=== PATIENT | male | born 1935 | race Caucasian/White ===

== ENCOUNTER 2017-03-07 08:10 | Day surgery (SDC) | payer MEDICARE, BC ==
[~2017-03-07 08:10] MED LIST: Sodium Chloride 0.9% 10 ML Syringe FLUSH PRN
[2017-03-07 10:39] VITALS: BP 159/86
--- NOTE | 2017-03-07 14:25 | OR ---
DATE OF PROCEDURE: 03/07/2017 POSTOPERATIVE CARE: Postoperative care will be provided mainly at the [address] [place] [address] [facility] in conjunction with [facility]. PREOPERATIVE DIAGNOSIS: Cataract, left eye. PREOPERATIVE DIAGNOSIS: Cataract, left eye. PROCEDURE: Phacoemulsification with intraocular lens placement, left eye. ANESTHESIA: Topical and intracameral. ESTIMATED BLOOD LOSS: Minimal. COMPLICATIONS: None. PATHOLOGY SPECIMENS: None. SURGICAL FINDINGS: None. INDICATION FOR PROCEDURE: The patient is a 81-year-old male with history of a visually significant cataract in the left eye, which interfered with activities of daily living. This consisted of a nuclear sclerosis cataract. Following careful discussion of the risks, benefits and alternatives to cataract extraction with intraocular lens placement including blindness and , the patient elected to proceed, and informed, written consent was obtained prior to the procedure. DESCRIPTION OF THE PROCEDURE: The patient was previously identified, and a zuleyka placed above the left eye. All sources, including the patient, indicated that the left eye was the correct eye. The patient was subsequently taken to the operating room where standard monitors were applied. The patient was then prepped and draped in the usual sterile fashion for ophthalmic surgery. Attention was first directed at the 12 o'clock position where a paracentesis port was fashioned. Shugar solution followed by Viscoat was instilled into the eye. Attention was then directed to the 8:30 position where a triplanar incision was made in a near-clear manner using a keratome. A continuous capsulorrhexis was then made using a combination of the cystotome and Utrata forceps. Hydrodissection was achieved using a balanced salt solution, and the lens rotated nicely. Phacoemulsification was then done using a modified [id number] technique without complication. Phaco time was 11.13 CDE. The remaining cortex was removed using the irrigation/aspiration handpiece. Provisc was then instilled into the eye. A Technis lens, model [id number], at 21.0 diopters was then placed in the capsular bag using an [place] injector. The remaining viscoelastic was removed using the irrigation/aspiration forceps. All wounds were then checked and found to be watertight. The lid speculum and drapes were removed. Maxitrol ointment was placed in the patient's left eye, and the eye was shielded. The patient tolerated the procedure well. The patient was instructed to follow up tomorrow. All needle and sponge counts were correct at the end of the procedure. Deja Roach MD /[id number]
== END 2017-03-07 10:42 | disposition home or self-care (01) ==
LOC: JP.SDS 08:10
PROVIDERS: ATTEND Ophthalmology
DX: H26.9 Unspecified cataract (principal); I10 Essential (primary) hypertension; E78.00 Pure hypercholesterolemia, unspecified; E11.9 Type 2 diabetes mellitus without complications; Z88.2 Allergy status to sulfonamides
CPT/HCPCS: 66984; C1780

== ENCOUNTER 2018-06-13 13:36 | Observation (INO) | payer MEDICARE, OTHER ==
[2018-06-13] MEDS ORDERED: Aspirin 81 MG Tab.Chew PO ONE (13:56)
--- NOTE | 2018-06-13 13:56 | EDM.PDOC ---
ED HPI GENERAL MEDICAL PROBLEM - General Chief Complaint: Chest Pain Stated Complaint: HEART ATTACK?? Time Seen by Provider: 06/13/18 13:52 Source of Information: Reports: Patient History Limitations: Reports: No Limitations - History of Present Illness INITIAL COMMENTS - FREE TEXT/NARRATIVE: pt arrived having rt sided chest pain He is breathing rapidly . He seemes very anxious. He hjad a coronary bypass in 2001. Onset: Today, Sudden Duration: Hour(s):, Other (pt is talking about being dizzy but he is feeling sob and appears to be hyperventilating) Location: Reports: Chest, Abdomen, Other ( dizzy) Associated Symptoms: Reports: Chest Pain, Other (nausea and he was feeling sob. ) Head Pain Score (Numeric/FACES): 0 - Related Data Allergies Allergy/AdvReac Type Severity Reaction Status Date / Time Sulfa (Sulfonamide Allergy Hives Verified 06/13/18 13:53 Antibiotics) Home Meds: Home Meds Aspirin 81 mg PO DAILY 03/04/17 [History] Ibuprofen [Advil] 2 tab PO Q8H PRN 03/04/17 [History] Loratadine [Claritin] 10 mg PO DAILY 03/04/17 [History] glipiZIDE [Glucotrol] 5 mg PO BID 03/04/17 [History] metFORMIN HCl [Glucophage] 1,000 mg PO BID 03/04/17 [History] Metoprolol Succinate [Toprol Xl] 50 mg PO DAILY 06/13/18 [History] Ranitidine HCl [Zantac] 150 mg PO DAILY 06/13/18 [History] Simvastatin [Zocor] 40 mg PO BEDTIME 06/13/18 [History] hydroCHLOROthiazide [Hydrochlorothiazide] 1 tab PO DAILY 06/13/18 [History] Past Medical History HEENT History: Reports: Cataract Cardiovascular History: Reports: Bypass, High Cholesterol, Hypertension Gastrointestinal History: Reports: None Genitourinary History: Reports: Prostate Disorder Endocrine/Metabolic History: Reports: Diabetes, Type II, Obesity/BMI 30+ - Past Surgical History HEENT Surgical History: Reports: Cataract Surgery, Naso-Sinus Surgery Cardiovascular Surgical History: Reports: Coronary Artery Bypass GI Surgical History: Reports: Colonoscopy Male Surgical History: Reports: Prostate Biopsy, TURP-Transurethral Resection of Prostate Social & Family History - Caffeine Use Caffeine Use: Reports: Coffee, Tea ED ROS GENERAL - Review of Systems Review Of Systems: See Below Constitutional: Reports: Diaphoresis HEENT: Reports: No Symptoms Respiratory: Reports: Shortness of Breath Cardiovascular: Reports: Chest Pain Endocrine: Reports: No Symptoms GI/Abdominal: Reports: Nausea : Reports: No Symptoms Musculoskeletal: Reports: No Symptoms ED EXAM, GENERAL - Physical Exam Exam: See Below Free Text/Narrative:: 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 He also became dizzy and was very sweaty. He has been having the dizziness previously. He states the chest pain was on the left side and was quite sharp in nature. Exam Limited By: No Limitations General Appearance: Alert, Anxious, Moderate Distress Ears: Normal TMs Nose: Normal Inspection Throat/Mouth: Normal Inspection Head: Atraumatic Neck: Normal Inspection Respiratory/Chest: No Respiratory Distress Cardiovascular: Regular Rate, Rhythm GI/Abdominal: Soft, Non-Tender, Other ( He has mild tenderness in the rt upper abdoman. ) (Male) Exam: Deferred Rectal (Males) Exam: Deferred Back Exam: Normal Inspection Extremities: Normal Inspection Neurological: Alert, Oriented, Normal Cognition Psychiatric: Normal Affect Course - Vital Signs Last Recorded V/S: Last Vital Signs Temp 36.5 C 06/13/18 14:39 Pulse 52 L 06/13/18 16:07 Resp 13 06/13/18 16:07 BP 106/60 06/13/18 16:07 Pulse Ox 96 06/13/18 16:07 - Orders/Labs/Meds Orders: Active Orders 24 hr Category Date Time Status EKG Documentation Completion [RC] ASDIRECTED Care 06/13/18 13:45 Active VL Duplex Carotid Comp [US] Stat Exams 06/13/18 15:57 Taken UA W/MICROSCOPIC [URIN] Urgent Lab 06/13/18 15:03 Ordered Sodium Chloride 0.9% [Normal Saline] 1,000 ml Med 06/13/18 15:45 Active IV ASDIRECTED EKG 12 Lead [EK] Routine Ther 06/13/18 13:45 Ordered Medication Orders Sodium Chloride (Normal Saline) 1,000 mls @ 200 mls/hr IV ASDIRECTED YI Last Admin: 06/13/18 15:54 Dose: 200 mls/hr Labs: Laboratory Tests 08/31/18 08/31/18 08/31/18 Range/Units 13:45 13:45 13:45 WBC 7.0 (4.5-11.0) K/uL RBC 4.85 (4.30-5.90) M/uL Hgb 14.9 (12.0-15.0) g/dL Hct 41.6 (40.0-54.0) % MCV 86 (80-98) fL MCH 31 (27-31) pg MCHC 36 (32-36) % Plt Count 202 (150-400) K/uL Neut % (Auto) 59 (36-66) % Lymph % (Auto) 30 (24-44) % [place] % (Auto) 10 H (2-6) % Eos % (Auto) 0 L (2-4) % Baso % (Auto) 0 (0-1) % Sodium 135 L (140-148) mmol/L Potassium 3.7 (3.6-5.2) mmol/L Chloride 99 L (100-108) mmol/L Carbon Dioxide 24 (21-32) mmol/L Anion Gap 15.7 H (5.0-14.0) mmol/L BUN 25 H (7-18) mg/dL Creatinine 2.2 H (0.8-1.3) mg/dL Est Cr Clr Drug Dosing 27.19 mL/min Estimated GFR (MDRD) 29 L (>60) Glucose 116 H (74-106) mg/dL Calcium 9.2 (8.5-10.1) mg/dL Total Bilirubin 0.7 (0.2-1.0) mg/dL AST 21 (15-37) U/L ALT 27 (12-78) U/L Alkaline Phosphatase 70 (46-116) U/L Troponin I < 0.017 (0.000-0.056) ng/mL Total Protein 7.4 (6.4-8.2) g/dL Albumin 4.1 (3.4-5.0) g/dL Globulin 3.3 (2.3-3.5) g/dL Albumin/Globulin Ratio 1.2 (1.2-2.2) Urine Color Urine Appearance Urine pH (4.5-8.0) Ur Specific [place] (1.008-1.030) Urine Protein (NEGATIVE) mg/dL Urine Glucose (UA) (NEGATIVE) mg/dL Urine Ketones (NEGATIVE) mg/dL Urine Occult Blood (NEGATIVE) Urine Nitrite (NEGAITVE) Urine Bilirubin (NEGATIVE) Urine Urobilinogen (NORMAL) mg/dL Ur Leukocyte Esterase (NEGATIVE) Urine RBC (0-5) Urine WBC (0-5) Ur Epithelial Cells Amorphous Sediment Urine Bacteria Urine Mucus Urine Other 06/13/18 06/13/18 Range/Units 15:03 16:20 WBC (4.5-11.0) K/uL RBC (4.30-5.90) M/uL Hgb (12.0-15.0) g/dL Hct (40.0-54.0) % MCV (80-98) fL MCH (27-31) pg MCHC (32-36) % Plt Count (150-400) K/uL Neut % (Auto) (36-66) % Lymph % (Auto) (24-44) % [place] % (Auto) (2-6) % Eos % (Auto) (2-4) % Baso % (Auto) (0-1) % Sodium (140-148) mmol/L Potassium (3.6-5.2) mmol/L Chloride (100-108) mmol/L Carbon Dioxide (21-32) mmol/L Anion Gap (5.0-14.0) mmol/L BUN (7-18) mg/dL Creatinine (0.8-1.3) mg/dL Est Cr Clr Drug Dosing mL/min Estimated GFR (MDRD) (>60) Glucose (74-106) mg/dL Calcium (8.5-10.1) mg/dL Total Bilirubin (0.2-1.0) mg/dL AST (15-37) U/L ALT (12-78) U/L Alkaline Phosphatase (46-116) U/L Troponin I < 0.017 (0.000-0.056) ng/mL Total Protein (6.4-8.2) g/dL Albumin (3.4-5.0) g/dL Globulin (2.3-3.5) g/dL Albumin/Globulin Ratio (1.2-2.2) Urine Color Yellow Urine Appearance Slightly cloudy Urine pH 5.0 (4.5-8.0) Ur Specific [place] 1.020 (1.008-1.030) Urine Protein Negative (NEGATIVE) mg/dL Urine Glucose (UA) Normal (NEGATIVE) mg/dL Urine Ketones Negative (NEGATIVE) mg/dL Urine Occult Blood Negative (NEGATIVE) Urine Nitrite Negative (NEGAITVE) Urine Bilirubin Small (NEGATIVE) Urine Urobilinogen 1 (NORMAL) mg/dL Ur Leukocyte Esterase Negative (NEGATIVE) Urine RBC Not seen (0-5) Urine WBC 0-5 (0-5) Ur Epithelial Cells Not seen Amorphous Sediment Moderate Urine Bacteria Few Urine Mucus Few Urine Other See note Meds: Medications Generic Name Dose Route Start Last Admin Trade Name Freq PRN Reason Stop Dose Admin Sodium Chloride 1,000 mls @ 200 mls/hr 06/13/18 15:45 06/13/18 15:54 Normal Saline IV 200 mls/hr ASDIRECTED YI Administration Discontinued Medications Generic Name Dose Route Start Last Admin Trade Name Freq PRN Reason Stop Dose Admin Aspirin 243 mg 06/13/18 13:56 06/13/18 14:14 Aspirin PO 06/13/18 13:57 243 mg ONETIME ONE Administration Lorazepam 0.5 mg 06/13/18 14:16 06/13/18 14:22 Ativan PO 06/13/18 14:17 0.5 mg ONETIME ONE Administration Morphine Sulfate 2 mg 06/13/18 15:53 06/13/18 15:57 Morphine IVPUSH 06/13/18 15:54 2 mg ONETIME ONE Administration Nitroglycerin 0.4 mg 06/13/18 15:37 06/13/18 15:51 Nitrostat SL 06/13/18 15:38 0.4 mg ONETIME ONE Administration Nitroglycerin 0.4 mg 06/13/18 15:51 06/13/18 15:55 Nitrostat SL 06/13/18 15:52 0.4 mg ONETIME ONE Administration - Re-Assessments/Exams Free Text/Narrative Re-Assessment/Exam: 06/13/18 17:12 pt had normal trop x 2/ His ekg shows a left bundle which is not new. He talked about alot of dizziness and for that reason He had a carotid US. The us looked good with out significsnt narrowing. He has a creatnine greater than 2. He has a normal chest xray. Departure - Departure Time of Disposition: 17:15 Disposition: Admitted As Inpatient 68 Condition: Fair Clinical Impression: Atypical chest pain, Dizziness, Left bundle branch block Referrals: PCP,None [Primary Care Provider] - Forms: ED Department Discharge Care Plan Goals: admit to Dr kraus. - My Orders Last 24 Hours: My Active Orders 06/13/18 13:45 EKG Documentation Completion [RC] ASDIRECTED EKG 12 Lead [EK] Routine 06/13/18 15:03 UA W/MICROSCOPIC [URIN] Urgent 06/13/18 15:45 Sodium Chloride 0.9% [Normal Saline] 1,000 ml IV ASDIRECTED 06/13/18 15:57 VL Duplex Carotid Comp [US] Stat - Assessment/Plan Last 24 Hours: My Active Orders 06/13/18 13:45 EKG Documentation Completion [RC] ASDIRECTED EKG 12 Lead [EK] Routine 06/13/18 15:03 UA W/MICROSCOPIC [URIN] Urgent 06/13/18 15:45 Sodium Chloride 0.9% [Normal Saline] 1,000 ml IV ASDIRECTED 06/13/18 15:57 VL Duplex Carotid Comp [US] Stat
[2018-06-13] MEDS ORDERED: LORazepam 0.5 MG Tab PO ONE (14:16)
--- NOTE | 2018-06-13 14:53 | CR ---
CHEST: Portable CLINICAL HISTORY:Chest pain COMPARISON:None FINDINGS: Patient has had previous sternotomy. Heart size and pulmonary vascularity are normal. Ther e are atherosclerotic changes in the aorta. Lung schneider are clear. IMPRESSION: Previous sternotomy No acute cardiopulmonary process
[2018-06-13] MEDS: Nitroglycerin 0.4 MG Tab.SL SL ONE ×2 (15:42→15:51)
[2018-06-13] MEDS ORDERED: Sodium Chloride 0.9% 1,000 ML IV SCH ×2 (15:45→18:51)
[2018-06-13] MEDS ORDERED: Nitroglycerin 0.4 MG Tab.SL SL ONE (15:51)
[2018-06-13] MEDS ORDERED: Morphine 2 MG/ML Syringe IVPUSH ONE (15:53)
--- NOTE | 2018-06-13 18:19 | PCM.HP ---
H&P History of Present Illness - General Date of Service: 06/13/18 Admit Problem/Dx: Admission Diagnosis/Problem Admission Diagnosis/Problem Chest pain Source of Information: Patient, Family, Provider History Limitations: Reports: No Limitations - History of Present Illness Initial Comments - Free Text/Narative: Siddharth presents to the emergency room today with chest pain. 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 The pain waxed and waned for approximately 1 hour and did finally resolve after he received 2 doses of nitroglycerin and a dose of morphine in the emergency room. The pain radiated up into his head and was associated with shortness of breath as well as dizziness and numbness in his feet. He did not take anything prior to arrival to make the pain better. He reports having intermittent but usually very short-lived pains in the chest. He has an excellent functional status and does not have dyspnea with exertion. He has never had pain this severe. No complaints of nausea, abdominal pain or diarrhea. He did not have breakfast and has not been drinking much fluid other than coffee and soda. 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 He does have some intermittent neuropathic sounding pain in his feet and that was more intense today. He does have intermittent episodes of dizziness that have been going on for some time. These are a lightheaded feeling and he does not describe any spinning or vertigo symptoms. Workup in the emergency room for the most part has been unremarkable. His creatinine is slightly elevated from baseline. He is noted to be bradycardic with heart rate in the 40s. He is currently pain-free. EKG did not show acute ischemic changes. He will be admitted for observation. Head Pain Score (Numeric/FACES): 0 - Related Data Allergies/Adverse Reactions: Allergies Allergy/AdvReac Type Severity Reaction Status Date / Time Sulfa (Sulfonamide Allergy Hives Verified 06/13/18 13:53 Antibiotics) Home Medications: Home Meds Aspirin 81 mg PO DAILY 03/04/17 [History] Ibuprofen [Advil] 2 tab PO Q8H PRN 03/04/17 [History] Loratadine [Claritin] 10 mg PO DAILY 03/04/17 [History] glipiZIDE [Glucotrol] 5 mg PO BID 03/04/17 [History] metFORMIN HCl [Glucophage] 1,000 mg PO BID 03/04/17 [History] Metoprolol Succinate [Toprol Xl] 50 mg PO DAILY 06/13/18 [History] Ranitidine HCl [Zantac] 150 mg PO DAILY 06/13/18 [History] Simvastatin [Zocor] 40 mg PO BEDTIME 06/13/18 [History] hydroCHLOROthiazide [Hydrochlorothiazide] 25 mg PO DAILY 06/13/18 [History] Past Medical History HEENT History: Reports: Cataract Cardiovascular History: Reports: Bypass, High Cholesterol, Hypertension Gastrointestinal History: Reports: None Other Gastrointestinal History: reflux Genitourinary History: Reports: Prostate Disorder Endocrine/Metabolic History: Reports: Diabetes, Type II, Obesity/BMI 30+ - Infectious Disease History Infectious Disease History: Reports: Chicken Pox - Past Surgical History HEENT Surgical History: Reports: Cataract Surgery, Naso-Sinus Surgery Cardiovascular Surgical History: Reports: Coronary Artery Bypass GI Surgical History: Reports: Colonoscopy Male Surgical History: Reports: Prostate Biopsy, TURP-Transurethral Resection of Prostate Social & Family History - Family History Cardiac: Reports: CAD (Father and brother) - Tobacco Use Smoking Status *Q: Former Smoker Years of Tobacco use: 20 Packs/Tins Daily: 0.5 Used Tobacco, but Quit: Yes Month/Year Tobacco Last Used: 1998 Second Hand Smoke Exposure: No - Caffeine Use Caffeine Use: Reports: Coffee, Tea - Alcohol Use Days Per Week of Alcohol Use: 0 - Recreational Drug Use Recreational Drug Use: No H&P Review of Systems - Review of Systems: Review Of Systems: See Below Free Text/Narrative: A complete 12 point review of systems was obtained. Pertinent positives and negatives are noted in the history of present illness. All other systems were reviewed and were negative except as noted. Exam - Exam Exam: See Below - Vital Signs Vital Signs: Last Vital Signs Temp 36.5 C 06/13/18 14:39 Pulse 52 L 06/13/18 16:07 Resp 13 06/13/18 16:07 BP 106/60 06/13/18 16:07 Pulse Ox 96 06/13/18 16:07 Weight: 95.254 kg - Exam Quality Assessment: No: Supplemental Oxygen General: Alert, Oriented, Cooperative. No: Mild Distress HEENT: Conjunctiva Clear, Mucosa Moist & [place]. No: Scleral Icterus Neck: Supple, Trachea Midline. No: Lymphadenopathy, Thyromegaly Lungs: Clear to Auscultation, Normal Respiratory Effort. No: Wheezing Cardiovascular: Regular Rhythm, Bradycardia. No: Systolic Murmur GI/Abdominal Exam: Normal Bowel Sounds, Soft, No Distention, No Mass, Tender ( Very mild generalized discomfort) Back Exam: Normal Inspection, Full Range of Motion Extremities: No Pedal Edema. No: Increased Warmth Skin: Warm, Dry Neuro Extensive - Mental Status: Alert, Oriented x3, Nl Response to Commands Neuro Extensive - Motor, Sensory, Reflexes: CN II-XII Intact. No: Dysarthria, Abnormal Motor, Tremor Psychiatric: Alert, Normal Affect - Patient Data Lab Results Last 24 hrs: Laboratory Results - last 24 hr 06/13/18 06/13/18 06/13/18 Range/Units 13:45 13:45 13:45 WBC 7.0 (4.5-11.0) K/uL RBC 4.85 (4.30-5.90) M/uL Hgb 14.9 (12.0-15.0) g/dL Hct 41.6 (40.0-54.0) % MCV 86 (80-98) fL MCH 31 (27-31) pg MCHC 36 (32-36) % Plt Count 202 (150-400) K/uL Neut % (Auto) 59 (36-66) % Lymph % (Auto) 30 (24-44) % [place] % (Auto) 10 H (2-6) % Eos % (Auto) 0 L (2-4) % Baso % (Auto) 0 (0-1) % Sodium 135 L (140-148) mmol/L Potassium 3.7 (3.6-5.2) mmol/L Chloride 99 L (100-108) mmol/L Carbon Dioxide 24 (21-32) mmol/L Anion Gap 15.7 H (5.0-14.0) mmol/L BUN 25 H (7-18) mg/dL Creatinine 2.2 H (0.8-1.3) mg/dL Est Cr Clr Drug Dosing 27.19 mL/min Estimated GFR (MDRD) 29 L (>60) Glucose 116 H (74-106) mg/dL Calcium 9.2 (8.5-10.1) mg/dL Total Bilirubin 0.7 (0.2-1.0) mg/dL AST 21 (15-37) U/L ALT 27 (12-78) U/L Alkaline Phosphatase 70 (46-116) U/L Troponin I < 0.017 (0.000-0.056) ng/mL Total Protein 7.4 (6.4-8.2) g/dL Albumin 4.1 (3.4-5.0) g/dL Globulin 3.3 (2.3-3.5) g/dL Albumin/Globulin Ratio 1.2 (1.2-2.2) Urine Color Urine Appearance Urine pH (4.5-8.0) Ur Specific [place] (1.008-1.030) Urine Protein (NEGATIVE) mg/dL Urine Glucose (UA) (NEGATIVE) mg/dL Urine Ketones (NEGATIVE) mg/dL Urine Occult Blood (NEGATIVE) Urine Nitrite (NEGAITVE) Urine Bilirubin (NEGATIVE) Urine Urobilinogen (NORMAL) mg/dL Ur Leukocyte Esterase (NEGATIVE) Urine RBC (0-5) Urine WBC (0-5) Ur Epithelial Cells Amorphous Sediment Urine Bacteria Urine Mucus Urine Other 06/13/18 06/13/18 Range/Units 15:03 16:20 WBC (4.5-11.0) K/uL RBC (4.30-5.90) M/uL Hgb (12.0-15.0) g/dL Hct (40.0-54.0) % MCV (80-98) fL MCH (27-31) pg MCHC (32-36) % Plt Count (150-400) K/uL Neut % (Auto) (36-66) % Lymph % (Auto) (24-44) % [place] % (Auto) (2-6) % Eos % (Auto) (2-4) % Baso % (Auto) (0-1) % Sodium (140-148) mmol/L Potassium (3.6-5.2) mmol/L Chloride (100-108) mmol/L Carbon Dioxide (21-32) mmol/L Anion Gap (5.0-14.0) mmol/L BUN (7-18) mg/dL Creatinine (0.8-1.3) mg/dL Est Cr Clr Drug Dosing mL/min Estimated GFR (MDRD) (>60) Glucose (74-106) mg/dL Calcium (8.5-10.1) mg/dL Total Bilirubin (0.2-1.0) mg/dL AST (15-37) U/L ALT (12-78) U/L Alkaline Phosphatase (46-116) U/L Troponin I < 0.017 (0.000-0.056) ng/mL Total Protein (6.4-8.2) g/dL Albumin (3.4-5.0) g/dL Globulin (2.3-3.5) g/dL Albumin/Globulin Ratio (1.2-2.2) Urine Color Yellow Urine Appearance Slightly cloudy Urine pH 5.0 (4.5-8.0) Ur Specific [place] 1.020 (1.008-1.030) Urine Protein Negative (NEGATIVE) mg/dL Urine Glucose (UA) Normal (NEGATIVE) mg/dL Urine Ketones Negative (NEGATIVE) mg/dL Urine Occult Blood Negative (NEGATIVE) Urine Nitrite Negative (NEGAITVE) Urine Bilirubin Small (NEGATIVE) Urine Urobilinogen 1 (NORMAL) mg/dL Ur Leukocyte Esterase Negative (NEGATIVE) Urine RBC Not seen (0-5) Urine WBC 0-5 (0-5) Ur Epithelial Cells Not seen Amorphous Sediment Moderate Urine Bacteria Few Urine Mucus Few Urine Other See note Result Diagrams: 06/13/18 13:45 06/13/18 13:45 Imaging Impressions Last 24 hrs: Chest x-ray - images personally reviewed - lungs are clear with no mass, infiltrate or effusion. Heart size is normal. He has had a previous sternotomy. EKG INTERPRETATION EKG Date: 06/13/18 Rhythm: NSR Rate (Beats/Min): 52 [place]: LAD-Left [place] Deviation P-Wave: Present QRS: LBBB ST-T: Normal QT: Normal Comparison: No Change EKG Interpretation Comments: Several PVCs are noted This image was personally reviewed and compared to a previous EKG with no significant changes. *Q Meaningful Use (ADM) - VTE Risk Assess *Q Each Risk Factor Represents 1 Point: Obesity ( BMI > 25 kg/m2) Total Score 1 Point Risk Factors: 1 Each Risk Factor Represents 2 Points: None Total Score 2 Point Risk Factors: 0 Each Risk Factor Represents 3 Points: Age 75 Years or Greater Total Score 3 Point Risk Factors: 3 Each Risk Factor Represents 5 Points: None Total Score 5 Point Risk Factors: 0 Venous Thromboembolism Risk Factor Score *Q: 4 - Problem List (1) Atypical chest pain SNOMED Code(s): 707023041 ICD Code: R07.89 - OTHER CHEST PAIN Status: Acute Current Visit: Yes (2) Dizziness SNOMED Code(s): 497150303, 532360760 ICD Code: R42 - DIZZINESS AND GIDDINESS Status: Acute Current Visit: Yes (3) Coronary artery disease SNOMED Code(s): 48422292 ICD Code: I25.10 - ATHSCL HEART DISEASE OF [place] CORONARY ARTERY W/O ANG PCTRS Status: Chronic Current Visit: Yes Qualifiers: Coronary Disease-Associated Artery/Lesion type: [place] artery [place] vs. transplanted heart: [place] heart Associated angina: without angina Qualified Code(s): I25.10 - Atherosclerotic heart disease of [place] coronary artery without angina pectoris (4) Stage III chronic kidney disease SNOMED Code(s): 817452898 ICD Code: N18.3 - CHRONIC KIDNEY DISEASE, STAGE 3 (MODERATE) Status: Chronic Current Visit: Yes (5) Type 2 diabetes mellitus with neurological manifestation SNOMED Code(s): 74078703, 326168124 ICD Code: E11.49 - TYPE 2 DIABETES W OTH DIABETIC NEUROLOGICAL COMPLICATION Status: Chronic Current Visit: Yes Problem List Initiated/Reviewed/Updated: Yes Orders Last 24hrs: Active Orders 24 hr Category Date Time Status Patient Status Manage Transfer [TRANSFER] Routine ADT 06/13/18 18:13 Ordered EKG Documentation Completion [RC] ASDIRECTED Care 06/13/18 13:45 Active VL Duplex Carotid Comp [US] Stat Exams 06/13/18 15:57 Taken UA W/MICROSCOPIC [URIN] Urgent Lab 06/13/18 15:03 Ordered Sodium Chloride 0.9% [Normal Saline] 1,000 ml Med 06/13/18 15:45 Active IV ASDIRECTED Resuscitation Status Routine Resus Stat 06/13/18 18:14 Ordered EKG 12 Lead [EK] Routine Ther 06/13/18 13:45 Ordered Medication Orders Sodium Chloride (Normal Saline) 1,000 mls @ 200 mls/hr IV ASDIRECTED YI Last Admin: 06/13/18 15:54 Dose: 200 mls/hr Assessment/Plan Comment:: ASSESSMENT AND PLAN - Atypical chest pain - sharp left-sided pain associated with dizziness and shortness of breath. No acute ischemic EKG changes into troponin levels have been unremarkable. Story sound somewhat concerning for arrhythmia such as bradycardia or tachycardia. He is bradycardic and is not currently symptomatic with heart rates in the mid to upper 40s. He has not had a stress test since his bypass surgery 14 years ago. No recent exertional symptoms. He is at high risk with previous coronary artery disease, diabetes and family history. -Third troponin tonight -Cardiac monitoring -Hold metoprolol until we see what his heart rate does, consider dose reduction -Outpatient stress testing Dizziness - intermittent episodes but more intense today. Could be related to the bradycardia. This is the first time that he's had chest pain associated with the dizziness. -Management as above Stage III chronic kidney disease - creatinine 2.2 today and baseline is about 1.5. Seems a little on the dry side. -Gentle IV fluids and repeat labs in the morning Type 2 diabetes mellitus, controlled with neurologic manifestations - patient describes some intermittent neuropathic type symptoms. -Hold home medications until we see what his kidney function looks like tomorrow Maintenance issues - - DVT prophylaxis - mechanical - GI prophylaxis - not indicated - Nutrition - diabetic diet - Hatch catheter - not indicated CODE STATUS - full code Admission justification - patient will be referred observation status for overnight monitoring and repeat laboratory testing Disposition - I would anticipate discharged home tomorrow Primary care physician - Brendan Tapia M.D.
[2018-06-13] MEDS ORDERED: Ibuprofen 400 MG Tab PO PRN (18:51)
[2018-06-13] MEDS ORDERED: Morphine 2 MG/ML Syringe IVPUSH PRN (18:51)
[2018-06-13] MEDS ORDERED: Ondansetron 4 MG Tab.DIS PO PRN (18:51)
[2018-06-13] MEDS ORDERED: Acetaminophen 325 MG Tab PO PRN (18:51)
[2018-06-13] MEDS ORDERED: Non-Formulary Medication 1 Each (Simvastatin [Zocor] 40 MG) PO SCH (21:00)
[2018-06-14] MEDS ORDERED: Non-Formulary Medication 1 Each (Aspirin [Aspirin] 81 MG) PO SCH (09:00)
--- NOTE | 2018-06-14 09:28 | PCM.DCSUM1 ---
Discharge Summary - Hospital Course Brief History: 83-year-old male with history of coronary artery disease status post bypass surgery 14 years ago, stage III chronic kidney disease and controlled type 2 diabetes mellitus who presented with chest pain and dizziness. He was admitted for observation and further workup. Diagnosis: Stroke: No - Discharge Data Discharge Date: 06/14/18 Discharge Disposition: Home, Self-Care 01 Condition: Good - Discharge Diagnosis/Problem(s) (1) Atypical chest pain SNOMED Code(s): 984646760 ICD Code: R07.89 - OTHER CHEST PAIN Status: Acute (2) Dizziness SNOMED Code(s): 835028190, 185975454 ICD Code: R42 - DIZZINESS AND GIDDINESS Status: Acute (3) Coronary artery disease SNOMED Code(s): 04027797 ICD Code: I25.10 - ATHSCL HEART DISEASE OF [place] CORONARY ARTERY W/O ANG PCTRS Status: Chronic Qualifiers: Coronary Disease-Associated Artery/Lesion type: [place] artery [place] vs. transplanted heart: [place] heart Associated angina: without angina Qualified Code(s): I25.10 - Atherosclerotic heart disease of [place] coronary artery without angina pectoris (4) Stage III chronic kidney disease SNOMED Code(s): 395805856 ICD Code: N18.3 - CHRONIC KIDNEY DISEASE, STAGE 3 (MODERATE) Status: Chronic (5) Type 2 diabetes mellitus with neurological manifestation SNOMED Code(s): 18201636, 886521342 ICD Code: E11.49 - TYPE 2 DIABETES W H DIABETIC NEUROLOGICAL COMPLICATION Status: Chronic - Patient Summary/Data Hospital Course: Siddharth presented to the emergency room with left-sided chest pain dizziness and shortness of breath. Workup in the emergency room was relatively unremarkable with an EKG that did not show significant changes from previous as well as 2 normal troponins. Kidney function was down slightly from baseline but did not meet criteria for acute kidney injury. He was noted to have mild bradycardia with heart rates in the 40s. Patient did receive relief of his chest pain from treatment provided in the emergency room but given the severity and duration of his pain he was admitted for observation. Overnight there were no abnormalities on telemetry. His heart rate did slowly rise up into the upper 50s and low 60s by morning. He did have one short twinge of pain on the left side. Dizziness is much better and has essentially resolved. Repeat laboratory testing the morning after admission showed that his kidney function had really returned to baseline after gentle hydration overnight. He did not have any fevers. He was able to ambulate up and down the hallway in the intensive care unit without any chest pain or dizziness. He felt like he was back to his usual self. The exact cause for his problems as not entirely clear but the bradycardia certainly could be contributing. We did decrease his metoprolol down to 25 mg once a day instead of 50. Given his history of heart disease and bypass surgery 14 years ago I think he would benefit from outpatient stress testing. Because of the holiday weekend this is not available for several days. Given that he is asymptomatic and his vital signs are stable I believe he is safe to go home at this time. He will take it easy until his stress test which will be scheduled for probably the middle of next week. He was advised to return of his symptoms recur. - Patient Instructions Diet: Diabetic Diet Activity: As Tolerated Driving: May Drive Today Showering/Bathing: May Shower Notify Provider of: Fever, Increased Pain, Nausea and/or Vomiting Other/Special Instructions: 1. You were in the hospital for observation after an episode of chest pain and dizziness. There was no evidence that you had a heart attack with this event. It is possible that this was a warning sign that a heart attack is coming and I do recommend that we completed a stress test in the near future. We did find that your heart rate was on the slow side and this could have been contributing as well. I recommend that we decrease your metoprolol to 25 mg once daily. 2. Continue your other home medications as previously prescribed. 3. I have placed an order for an outpatient stress test. You will be contacted early next week to schedule this test. 4. Seek medical attention if you have fever greater than 101, if you have return of the chest pain or if you develop severe shortness of breath. - Discharge Plan *PRESCRIPTION DRUG MONITORING PROGRAM REVIEWED*: Not Applicable *COPY OF PRESCRIPTION DRUG MONITORING REPORT IN PATIENT KRISTEN: Not Applicable Prescriptions/Med Rec: Metoprolol Succinate [Toprol Xl] 25 mg PO DAILY #30 tab.er.24h Home Medications: Home Meds Aspirin 81 mg PO DAILY 03/04/17 [History] Ibuprofen [Advil] 2 tab PO Q8H PRN 03/04/17 [History] Loratadine [Claritin] 10 mg PO DAILY 03/04/17 [History] glipiZIDE [Glucotrol] 5 mg PO BID 03/04/17 [History] metFORMIN HCl [Glucophage] 1,000 mg PO BID 03/04/17 [History] Ranitidine HCl [Zantac] 150 mg PO DAILY 06/13/18 [History] Simvastatin [Zocor] 40 mg PO BEDTIME 06/13/18 [History] hydroCHLOROthiazide [Hydrochlorothiazide] 25 mg PO DAILY 06/13/18 [History] Metoprolol Succinate [Toprol Xl] 25 mg PO DAILY #30 tab.er.24h 06/14/18 [Rx] Patient Handouts: Nonspecific Chest Pain, Dizziness, [id number] Referrals: Brendan Ku CONTROL ENGINEER [Nurse Practitioner] - (f/u as scheduled on Saturday) - Discharge Summary/Plan Comment DC Time >30 min.: No - Patient Data Vitals - Most Recent: Last Vital Signs Temp 36.6 C 06/14/18 07:00 Pulse 54 L 06/14/18 07:00 Resp 17 06/14/18 07:00 BP 148/70 H 06/14/18 07:00 Pulse Ox 96 06/14/18 07:00 Weight - Most Recent: 97.5 kg I&O - Last 24 hours: Intake & Output 06/13/18 06/14/18 06/14/18 22:59 06:59 14:59 Intake Total 50 1563 Output Total 750 Balance 50 813 Lab Results - Last 24 hrs: Laboratory Results - last 24 hr 06/13/18 06/13/18 06/13/18 Range/Units 13:45 13:45 13:45 WBC 7.0 (4.5-11.0) K/uL RBC 4.85 (4.30-5.90) M/uL Hgb 14.9 (12.0-15.0) g/dL Hct 41.6 (40.0-54.0) % MCV 86 (80-98) fL MCH 31 (27-31) pg MCHC 36 (32-36) % Plt Count 202 (150-400) K/uL Neut % (Auto) 59 (36-66) % Lymph % (Auto) 30 (24-44) % [place] % (Auto) 10 H (2-6) % Eos % (Auto) 0 L (2-4) % Baso % (Auto) 0 (0-1) % Sodium 135 L (140-148) mmol/L Potassium 3.7 (3.6-5.2) mmol/L Chloride 99 L (100-108) mmol/L Carbon Dioxide 24 (21-32) mmol/L Anion Gap 15.7 H (5.0-14.0) mmol/L BUN 25 H (7-18) mg/dL Creatinine 2.2 H (0.8-1.3) mg/dL Est Cr Clr Drug Dosing 27.19 mL/min Estimated GFR (MDRD) 29 L (>60) Glucose 116 H (74-106) mg/dL Calcium 9.2 (8.5-10.1) mg/dL Total Bilirubin 0.7 (0.2-1.0) mg/dL AST 21 (15-37) U/L ALT 27 (12-78) U/L Alkaline Phosphatase 70 (46-116) U/L Troponin I < 0.017 (0.000-0.056) ng/mL Total Protein 7.4 (6.4-8.2) g/dL Albumin 4.1 (3.4-5.0) g/dL Globulin 3.3 (2.3-3.5) g/dL Albumin/Globulin Ratio 1.2 (1.2-2.2) Urine Color Urine Appearance Urine pH (4.5-8.0) Ur Specific [place] (1.008-1.030) Urine Protein (NEGATIVE) mg/dL Urine Glucose (UA) (NEGATIVE) mg/dL Urine Ketones (NEGATIVE) mg/dL Urine Occult Blood (NEGATIVE) Urine Nitrite (NEGAITVE) Urine Bilirubin (NEGATIVE) Urine Urobilinogen (NORMAL) mg/dL Ur Leukocyte Esterase (NEGATIVE) Urine RBC (0-5) Urine WBC (0-5) Ur Epithelial Cells Amorphous Sediment Urine Bacteria Urine Mucus Urine Other 06/13/18 06/13/18 06/13/18 Range/Units 15:03 16:20 20:49 WBC (4.5-11.0) K/uL RBC (4.30-5.90) M/uL Hgb (12.0-15.0) g/dL Hct (40.0-54.0) % MCV (80-98) fL MCH (27-31) pg MCHC (32-36) % Plt Count (150-400) K/uL Neut % (Auto) (36-66) % Lymph % (Auto) (24-44) % [place] % (Auto) (2-6) % Eos % (Auto) (2-4) % Baso % (Auto) (0-1) % Sodium (140-148) mmol/L Potassium (3.6-5.2) mmol/L Chloride (100-108) mmol/L Carbon Dioxide (21-32) mmol/L Anion Gap (5.0-14.0) mmol/L BUN (7-18) mg/dL Creatinine (0.8-1.3) mg/dL Est Cr Clr Drug Dosing mL/min Estimated GFR (MDRD) (>60) Glucose (74-106) mg/dL Calcium (8.5-10.1) mg/dL Total Bilirubin (0.2-1.0) mg/dL AST (15-37) U/L ALT (12-78) U/L Alkaline Phosphatase (46-116) U/L Troponin I < 0.017 < 0.017 (0.000-0.056) ng/mL Total Protein (6.4-8.2) g/dL Albumin (3.4-5.0) g/dL Globulin (2.3-3.5) g/dL Albumin/Globulin Ratio (1.2-2.2) Urine Color Yellow Urine Appearance Slightly cloudy Urine pH 5.0 (4.5-8.0) Ur Specific [place] 1.020 (1.008-1.030) Urine Protein Negative (NEGATIVE) mg/dL Urine Glucose (UA) Normal (NEGATIVE) mg/dL Urine Ketones Negative (NEGATIVE) mg/dL Urine Occult Blood Negative (NEGATIVE) Urine Nitrite Negative (NEGAITVE) Urine Bilirubin Small (NEGATIVE) Urine Urobilinogen 1 (NORMAL) mg/dL Ur Leukocyte Esterase Negative (NEGATIVE) Urine RBC Not seen (0-5) Urine WBC 0-5 (0-5) Ur Epithelial Cells Not seen Amorphous Sediment Moderate Urine Bacteria Few Urine Mucus Few Urine Other See note 06/14/18 06/14/18 Range/Units 05:11 05:12 WBC 5.0 (4.5-11.0) K/uL RBC 4.24 L (4.30-5.90) M/uL Hgb 12.8 D (12.0-15.0) g/dL Hct 37.1 L (40.0-54.0) % MCV 88 (80-98) fL MCH 30 (27-31) pg MCHC 35 (32-36) % Plt Count 163 (150-400) K/uL Neut % (Auto) (36-66) % Lymph % (Auto) (24-44) % [place] % (Auto) (2-6) % Eos % (Auto) (2-4) % Baso % (Auto) (0-1) % Sodium 138 L (140-148) mmol/L Potassium 4.0 (3.6-5.2) mmol/L Chloride 105 (100-108) mmol/L Carbon Dioxide 25 (21-32) mmol/L Anion Gap 12.0 (5.0-14.0) mmol/L BUN 29 H (7-18) mg/dL Creatinine 1.7 H (0.8-1.3) mg/dL Est Cr Clr Drug Dosing 35.19 mL/min Estimated GFR (MDRD) 39 L (>60) Glucose 151 H (74-106) mg/dL Calcium 8.1 L (8.5-10.1) mg/dL Total Bilirubin (0.2-1.0) mg/dL AST (15-37) U/L ALT (12-78) U/L Alkaline Phosphatase (46-116) U/L Troponin I (0.000-0.056) ng/mL Total Protein (6.4-8.2) g/dL Albumin (3.4-5.0) g/dL Globulin (2.3-3.5) g/dL Albumin/Globulin Ratio (1.2-2.2) Urine Color Urine Appearance Urine pH (4.5-8.0) Ur Specific [place] (1.008-1.030) Urine Protein (NEGATIVE) mg/dL Urine Glucose (UA) (NEGATIVE) mg/dL Urine Ketones (NEGATIVE) mg/dL Urine Occult Blood (NEGATIVE) Urine Nitrite (NEGAITVE) Urine Bilirubin (NEGATIVE) Urine Urobilinogen (NORMAL) mg/dL Ur Leukocyte Esterase (NEGATIVE) Urine RBC (0-5) Urine WBC (0-5) Ur Epithelial Cells Amorphous Sediment Urine Bacteria Urine Mucus Urine Other Med Orders - Current: Current Medications Acetaminophen (Tylenol) 650 mg PO Q4H PRN PRN Reason: Pain (Mild 1-3)/fever Ibuprofen (Motrin) 400 mg PO Q6H PRN PRN Reason: Pain (mild 1-3) Morphine Sulfate (Morphine) 2 mg IVPUSH Q2H PRN PRN Reason: Chest Pain Non-Formulary Medication (Aspirin [Aspirin]) 81 mg PO DAILY [facility] Non-Formulary Medication (Simvastatin [Zocor]) 40 mg PO BEDTIME [facility] Ondansetron HCl (Zofran Odt) 4 mg PO Q6H PRN PRN Reason: Nausea able to take PO Discontinued Medications Aspirin (Aspirin) 243 mg PO ONETIME ONE Stop: 06/13/18 13:57 Last Admin: 06/13/18 14:14 Dose: 243 mg Sodium Chloride (Normal Saline) 1,000 mls @ 200 mls/hr IV ASDIRECTED [facility] Last Admin: 06/13/18 15:54 Dose: 200 mls/hr Sodium Chloride (Normal Saline) 1,000 mls @ 125 mls/hr IV ASDIRECTED [facility] Stop: 06/13/18 23:52 Last Admin: 06/13/18 20:51 Dose: 125 mls/hr Lorazepam (Ativan) 0.5 mg PO ONETIME ONE Stop: 06/13/18 14:17 Last Admin: 06/13/18 14:22 Dose: 0.5 mg Morphine Sulfate (Morphine) 2 mg IVPUSH ONETIME ONE Stop: 06/13/18 15:54 Last Admin: 06/13/18 15:57 Dose: 2 mg Nitroglycerin (Nitrostat) 0.4 mg SL ONETIME ONE Stop: 06/13/18 15:38 Last Admin: 06/13/18 15:51 Dose: 0.4 mg Nitroglycerin (Nitrostat) 0.4 mg SL ONETIME ONE Stop: 06/13/18 15:52 Last Admin: 06/13/18 15:55 Dose: 0.4 mg - Exam Quality Assessment: Denies: Supplemental Oxygen General: Reports: Alert, Oriented, Cooperative, No Acute Distress Lungs: Reports: Normal Respiratory Effort Cardiovascular: Reports: Regular Rate, Regular Rhythm GI/Abdominal Exam: Soft, No Distention Skin: Reports: Warm, Dry Psy/Mental Status: Reports: Alert, Normal Affect
[2018-06-14 10:06] VITALS: BP 134/58
--- NOTE | 2018-06-17 15:06 | US ---
VL Duplex Carotid Comp CLINICAL HISTORY: Dizziness FINDINGS: Real-time images were obtained through both carotid bifurcations and vertebral arteries. Right carotid artery: There is mild plaque in the carotid bifurcation. Peak systolic the velocity was 63 cm/s. The end-diastolic velocity was 18 cm/s. ICA/CCA velocity ratio is 0.8 Waveforms are normal Left carotid artery: There is minimal plaque in the carotid bifurcation. Peak systolic flow velocity in the ICA was 100 cm/s End diastolic velocity was 26 cm/s Velocity ratio was 1.1. There is antegrade flow in both vertebral arteries IMPRESSION: Minimal to mild plaque in the carotid bifurcations with ICA stenosis less than 50% ca carey
== END 2018-06-14 10:16 | disposition home or self-care (01) ==
LOC: JP.ED 13:36 → JP.ICU 18:13
PROVIDERS: ADMIT Internal Medicine; ATTEND Internal Medicine
DX: R07.89 Other chest pain (principal); R42 Dizziness and giddiness; I25.10 Atherosclerotic heart disease of native coronary artery without angina pectoris; I12.9 Hypertensive chronic kidney disease with stage 1 through stage 4 chronic kidney disease, or unspecified chronic kidney disease; E11.22 Type 2 diabetes mellitus with diabetic chronic kidney disease; N18.3 Chronic kidney disease, stage 3 (moderate); E78.00 Pure hypercholesterolemia, unspecified; E66.9 Obesity, unspecified; Z68.30 Body mass index [BMI] 30.0-30.9, adult; Z79.82 Long term (current) use of aspirin; Z79.84 Long term (current) use of oral hypoglycemic drugs; Z79.899 Other long term (current) drug therapy; Z88.2 Allergy status to sulfonamides; Z87.891 Personal history of nicotine dependence
CPT/HCPCS: 36415; 71045; 80048; 80053; 81001; 82962; 84484; 85025; 85027; 93005; 93880; 96361; 96374; 99285; A9270; J2270; J7030

== ENCOUNTER 2020-08-22 18:12 | Emergency (ER) | payer MEDICARE ==
[2020-08-22 19:59] VITALS: BP 109/51; PULSE 60
--- NOTE | 2020-08-22 20:12 | EDM.PDOC ---
ED HPI GENERAL MEDICAL PROBLEM - General Chief Complaint: General Stated Complaint: COVID POSITIVE Time Seen by Provider: 08/22/20 20:05 History Limitations: Reports: No Limitations - History of Present Illness INITIAL COMMENTS - FREE TEXT/NARRATIVE: -year-old male recently released from [place] apparently today with positive Covid after treatment there. He got home and he felt short of breath a nd was advised to come in for recheck. However his pulse ox is running in the mid 90s here in the department and he is not short of breath or feeling badly. He is observed in the department for period of time and feels better wants to go home and is discharged to return if he gets acute onset severe shortness of breath Onset: Today, Sudden - Related Data Allergies Allergy/AdvReac Type Severity Reaction Status Date / Time Sulfa (Sulfonamide Allergy Hives Verified 06/13/18 13:53 Antibiotics) Home Meds: Home Meds Aspirin 81 mg PO DAILY 03/04/17 [History] glipiZIDE [Glucotrol] 5 mg PO BID 03/04/17 [History] metFORMIN HCl [Glucophage] 500 mg PO BID 03/04/17 [History] Simvastatin [Zocor] 40 mg PO BEDTIME 06/13/18 [History] Metoprolol Succinate [Toprol Xl] 25 mg PO DAILY #30 tab.er.24h 06/14/18 [Rx] Cholecalciferol (Vitamin D3) [Vitamin D3] 2,000 unit PO DAILY 08/22/20 [History] Cyanocobalamin (Vitamin B-12) [Vitamin B-12] 500 mcg PO DAILY 08/22/20 [History] Fish Oil/[place]-3 Fatty Acids [Fish Oil 1,000 MG] 1 each PO DAILY 08/22/20 [History] Gabapentin [Neurontin] 300 mg PO BEDTIME 08/22/20 [History] Lutein 20 mg PO DAILY 08/22/20 [History] allopurinoL [Zyloprim] 300 mg PO DAILY 08/22/20 [History] lisinopriL [Lisinopril] 10 mg PO DAILY 08/22/20 [History] Past Medical History HEENT History: Reports: Cataract Cardiovascular History: Reports: Bypass, High Cholesterol, Hypertension Respiratory History: Reports: Other (See Below) Other Respiratory History: covid pneumonia Gastrointestinal History: Reports: None Other Gastrointestinal History: reflux Genitourinary History: Reports: Prostate Disorder Endocrine/Metabolic History: Reports: Diabetes, Type II, Obesity/BMI 30+ - Infectious Disease History Infectious Disease History: Reports: Other (See Below) Other Infectious Disease History: unknown - Past Surgical History HEENT Surgical History: Reports: Cataract Surgery, Naso-Sinus Surgery Cardiovascular Surgical History: Reports: Coronary Artery Bypass GI Surgical History: Reports: Colonoscopy Male Surgical History: Reports: Prostate Biopsy, TURP-Transurethral Resection of Prostate Social & Family History - Family History Family Medical History: Noncontributory Cardiac: Reports: CAD - Tobacco Use Tobacco Use Status *Q: Former Tobacco User Used Tobacco, but Quit: Yes Month/Year Tobacco Last Used: unknown smoked 41 years - Caffeine Use Caffeine Use: Reports: Coffee ED ROS GENERAL - Review of Systems Review Of Systems: See Below Constitutional: Reports: No Symptoms HEENT: Reports: No Symptoms Respiratory: Reports: No Symptoms Cardiovascular: Reports: No Symptoms GI/Abdominal: Reports: No Symptoms ED EXAM, GENERAL - Physical Exam Exam: See Below Free Text/Narrative:: Awake aware alert cooperative male with normal vital signs and a pulse ox around 95 on room air. He does not appear to be in distress. He does not want stay. Wants to go home and is discharged to return to be acute onset of severe shortness of breath Exam Limited By: No Limitations General Appearance: Alert, No Apparent Distress Course - Vital Signs Last Recorded V/S: Last Vital Signs Temp 37.0 C 08/22/20 18:31 Pulse 60 08/22/20 19:45 Resp 16 08/22/20 18:31 BP 109/51 L 08/22/20 19:45 Pulse Ox 92 L 08/22/20 19:45 Departure - Departure Time of Disposition: 20:13 Disposition: Home, Self-Care 01 Condition: Good Clinical Impression: COVID-19 - Discharge Information Instructions: COVID-19 Frequently Asked Questions Referrals: Brendan Ku NP [Primary Care Provider] - Forms: ED Department Discharge Sepsis Event Note (ED) - Evaluation Sepsis Screening Result: No Definite Risk - Focused Exam Vital Signs: Vital Signs Temp Pulse Resp BP Pulse Ox 08/22/20 19:45 60 109/51 L 92 L 08/22/20 18:31 37.0 C 59 L 16 111/53 L 94 L 08/22/20 18:21 37.0 C 59 L 16 111/53 L 94 L
== END 2020-08-22 20:17 | disposition home or self-care (01) ==
LOC: JP.ED 18:12
DX: U07.1 COVID-19 (principal); I10 Essential (primary) hypertension; E78.00 Pure hypercholesterolemia, unspecified; E11.9 Type 2 diabetes mellitus without complications; E66.9 Obesity, unspecified; Z88.2 Allergy status to sulfonamides; Z79.899 Other long term (current) drug therapy; Z68.28 Body mass index [BMI] 28.0-28.9, adult; Z87.891 Personal history of nicotine dependence
CPT/HCPCS: 99284

== ENCOUNTER 2023-10-16 18:53 | Emergency (ER) | payer MEDICARE ==
[2023-10-16 19:17] VITALS: BP 178/68; PULSE 62
[2023-10-16] MEDS ORDERED: cefTRIAXone 1 GM, Lidocaine 1% 2.1 ML IM ONE ×2 (19:29)
[2023-10-16 19:44] LABS: BASOPHILS PERCENT AUTO 0.3 % (0.1-1.3); EOSINOPHILS ABSOLUTE AUTO 0.03 K/uL (0.00-0.40); EOSINOPHILS PERCENT AUTO 0.4 % (0.0-5.4); HEMATOCRIT 39.4 % (38.4-49.7); HEMOGLOBIN 13.7 g/dL (12.9-16.9); IMMATURE GRAN PERCENT AUTO 0.3 % (0.0-0.7); LYMPHOCYTES ABSOLUTE AUTO 1.82 K/uL (0.8-3.3); LYMPHOCYTES PERCENT AUTO 24.3 % (11.4-47.7); MEAN CORPUSCULAR HEMOGLOBIN 30.9 pg (31.6-35.5); MEAN CORPUSCULAR HGB CONC 34.8 g/dL (31.6-35.5); MEAN CORPUSCULAR VOLUME 88.9 fL (81.4-99.0); MONOCYTES ABSOLUTE AUTO 0.72 K/uL (0.20-0.90); MONOCYTES PERCENT AUTO 9.6 % (3.3-12.6); NEUTROPHILS ABSOLUTE AUTO 4.87 K/uL (1.0-7.6); NEUTROPHILS PERCENT AUTO 65.1 % (40.0-78.1); PLATELET COUNT,PLT 171 K/uL (130-375); RED BLOOD CELL COUNT 4.43 M/uL (4.14-5.76); WHITE BLOOD CELL COUNT,WBC 7.5 K/uL (3.2-11.0)
[2023-10-16 19:50] LABS: BASOPHILS ABSOLUTE AUTO 0.02 K/uL (0.00-0.10); IMMATURE GRAN ABSOLUTE AUTO 0.02 K/uL (0.00-0.23)
[2023-10-16 20:06] LABS: A/G RATIO 1.2 (1.2-2.2); ALANINE AMINOTRANSFERASE,ALT 19 U/L (12-78); ALBUMIN 3.9 g/dL (3.4-5.0); ALKALINE PHOSPHATASE 79 U/L (46-116); ANION GAP 12.1 mmol/L (5.0-14.0); ASPARTATE AMNIOTRANSFERASE,AST 12 U/L (15-37); BILIRUBIN TOTAL 0.4 mg/dL (0.2-1.0); BLOOD UREA NITROGEN,BUN 18 mg/dL (7-18); CALCIUM 8.5 mg/dL (8.5-10.1); CARBON DIOXIDE,CO2 26 mmol/L (21-32); CHLORIDE,CL 102 mmol/L (100-108); CREATININE 1.2 mg/dL (0.8-1.3); EST CRCL DRUG DOSING (CG) 45.63 mL/min; ESTIMATED GFR 59 mL/min (>60); GLUCOSE RANDOM 189 mg/dL (74-106); POTASSIUM,K 4.1 mmol/L (3.6-5.2); PROTEIN TOTAL,TP 7.1 g/dL (6.4-8.2); SODIUM,NA 136 mmol/L (140-148)
== END 2023-10-16 21:10 | disposition home or self-care (01) ==
LOC: JP.ED 18:53
DX: L03.114 Cellulitis of left upper limb (principal); S60.562A Insect bite (nonvenomous) of left hand, initial encounter; I10 Essential (primary) hypertension; E78.00 Pure hypercholesterolemia, unspecified; I25.10 Atherosclerotic heart disease of native coronary artery without angina pectoris; E11.9 Type 2 diabetes mellitus without complications; Z88.2 Allergy status to sulfonamides; Z79.82 Long term (current) use of aspirin; Z79.84 Long term (current) use of oral hypoglycemic drugs; Z79.899 Other long term (current) drug therapy
CPT/HCPCS: 36415; 80053; 83605; 84145; 85025; 86140; 96372; 99283; J0696

== ENCOUNTER 2024-04-14 08:58 | Observation (INO) | payer MEDICARE ==
[2024-04-14 09:53] LABS: BASOPHILS PERCENT AUTO 0.1 % (0.1-1.3); EOSINOPHILS PERCENT AUTO 0.1 % (0.0-5.4); HEMATOCRIT 40.8 % (38.4-49.7); HEMOGLOBIN 14.8 g/dL (12.9-16.9); IMMATURE GRAN PERCENT AUTO 0.2 % (0.0-0.7); MEAN CORPUSCULAR HEMOGLOBIN 31.8 pg (31.6-35.5); MEAN CORPUSCULAR HGB CONC 36.3 g/dL (31.6-35.5); MEAN CORPUSCULAR VOLUME 87.6 fL (81.4-99.0); MONOCYTES ABSOLUTE AUTO 0.64 K/uL (0.20-0.90); MONOCYTES PERCENT AUTO 5.8 % (3.3-12.6); NEUTROPHILS ABSOLUTE AUTO 9.25 K/uL (1.0-7.6); NEUTROPHILS PERCENT AUTO 83.8 % (40.0-78.1); PLATELET COUNT,PLT 160 K/uL (130-375); RED BLOOD CELL COUNT 4.66 M/uL (4.14-5.76)
[2024-04-14 10:11] LABS: BASOPHILS ABSOLUTE AUTO 0.01 K/uL (0.00-0.10); EOSINOPHILS ABSOLUTE AUTO 0.01 K/uL (0.00-0.40); IMMATURE GRAN ABSOLUTE AUTO 0.02 K/uL (0.00-0.23)
[2024-04-14] MEDS: Ondansetron 4 MG/2 ML SDV IVPUSH ONE (10:14)
[2024-04-14 10:17] LABS: A/G RATIO 1.1 (1.2-2.2); ALANINE AMINOTRANSFERASE,ALT 21 U/L (12-78); ALBUMIN 3.9 g/dL (3.4-5.0); ALKALINE PHOSPHATASE 75 U/L (46-116); ASPARTATE AMNIOTRANSFERASE,AST 16 U/L (15-37); BILIRUBIN TOTAL 0.8 mg/dL (0.2-1.0); BLOOD UREA NITROGEN,BUN 14 mg/dL (7-18); CALCIUM 9.4 mg/dL (8.5-10.1); CARBON DIOXIDE,CO2 24 mmol/L (21-32); CHLORIDE,CL 103 mmol/L (100-108); CREATININE 1.3 mg/dL (0.8-1.3); EST CRCL DRUG DOSING (CG) 38.13 mL/min; ESTIMATED GFR 54 mL/min (>60); GLUCOSE RANDOM 147 mg/dL (74-106); POTASSIUM,K 4.5 mmol/L (3.6-5.2); PROTEIN TOTAL,TP 7.4 g/dL (6.4-8.2); SODIUM,NA 139 mmol/L (140-148)
[2024-04-14] MEDS: fentaNYL 100 MCG/2 ML SDV IVPUSH ONE (10:17)
[2024-04-14 10:18] LABS: ANION GAP 16.5 mmol/L (5.0-14.0)
[2024-04-14] MEDS: Sodium Chloride 0.9% 1,000 ML IV STA (10:18)
[2024-04-14] MEDS: Sodium Chloride 0.9% 80 ML IV ONE (10:48)
[2024-04-14] MEDS: Iopamidol 612 MG/ML 100 ML Bottle IV PRN (10:48)
[2024-04-14] MEDS: Sodium Chloride 0.9% 10 ML Syringe FLUSH PRN ×2 (10:48→12:46)
[2024-04-14] MEDS: HYDROmorphone 0.5 MG/0.5 ML Syringe IVPUSH ONE (12:45)
[2024-04-14] MEDS: Piperacillin/Tazobactam 3.375 GM in Sodium Chloride 0.9% 50 ML IV SCH (14:38)
[2024-04-14] MEDS ORDERED: Piperacillin/Tazobactam/Dext 4.5 GM in Premix Bag 1 BAG IV ONE (14:45)
[2024-04-14] MEDS: droPERidol 5 MG/2 ML SDV IVPUSH ONE (15:20)
[2024-04-14] MEDS ORDERED: Morphine 2 MG/ML SYRINGE IV PRN (16:13)
[2024-04-14] MEDS ORDERED: Morphine 4 MG/ML Syringe IV PRN (16:14)
[2024-04-14] MEDS ORDERED: fentaNYL 50 MCG/ML SDV IV PRN ×2 (16:15→16:16)
[2024-04-14] MEDS: fentaNYL 50 MCG/ML SDV IV PRN (16:37)
[2024-04-14] MEDS: Sodium Chloride 0.9% 1,000 ML IV SCH (16:38)
[2024-04-14] MEDS ORDERED: Glucagon,Human Recombinant 1 MG Vial IM PRN (16:41)
[2024-04-14] MEDS ORDERED: 50% Dextrose in Water 50 ML Syringe IVPUSH PRN (16:41)
[2024-04-14] MEDS ORDERED: diphenhydrAMINE 50 MG/ML SDV IVPUSH PRN (17:00)
[2024-04-14] MEDS ORDERED: Nicotine 14 MG/24 Hr Patch TRDERM PRN (17:00)
[2024-04-14] MEDS ORDERED: diphenhydrAMINE 25 MG Cap PO PRN (17:00)
[2024-04-14] MEDS ORDERED: Ondansetron 4 MG/2 ML SDV IVPUSH PRN (17:00)
[2024-04-14] MEDS ORDERED: Scopalamine 1mg/3day Transdermal Patch TOP PRN (17:00)
[2024-04-14] MEDS ORDERED: Promethazine 12.5 MG in Sodium Chloride 0.9% 50 ML IV PRN (17:00)
[2024-04-14] MEDS: Insulin Lispro 100 Unit/ML 3 ML KwikPen SUBCUT SCH (17:31)
[2024-04-14] MEDS ORDERED: Piperacillin/Tazobactam/Dext 4.5 GM in Premix Bag 1 BAG IV SCH (19:00)
[2024-04-14] MEDS: Piperacillin/Tazobactam/Dext 4.5 GM in Premix Bag 1 BAG IV ONE (20:41)
[2024-04-14] MEDS: Morphine 2 MG/ML SYRINGE IV PRN (21:49)
[2024-04-14] MEDS: Acetaminophen 325 MG Tab PO PRN (23:56)
[2024-04-15] MEDS: Piperacillin/Tazobactam/Dext 4.5 GM in Premix Bag 1 BAG IV SCH (01:24)
[2024-04-15 04:57] LABS: BASOPHILS ABSOLUTE AUTO 0.03 K/uL (0.00-0.10); BASOPHILS PERCENT AUTO 0.3 % (0.1-1.3); HEMOGLOBIN 12.7 g/dL (12.9-16.9); IMMATURE GRAN ABSOLUTE AUTO 0.05 K/uL (0.00-0.23); IMMATURE GRAN PERCENT AUTO 0.5 % (0.0-0.7); LYMPHOCYTES ABSOLUTE AUTO 1.62 K/uL (0.8-3.3); LYMPHOCYTES PERCENT AUTO 15.1 % (11.4-47.7); MEAN CORPUSCULAR HEMOGLOBIN 30.8 pg (31.6-35.5); MEAN CORPUSCULAR HGB CONC 34.3 g/dL (31.6-35.5); MEAN CORPUSCULAR VOLUME 89.6 fL (81.4-99.0); MONOCYTES ABSOLUTE AUTO 0.61 K/uL (0.20-0.90); MONOCYTES PERCENT AUTO 5.7 % (3.3-12.6); NEUTROPHILS ABSOLUTE AUTO 8.45 K/uL (1.0-7.6); NEUTROPHILS PERCENT AUTO 78.4 % (40.0-78.1); PLATELET COUNT,PLT 130 K/uL (130-375); RED BLOOD CELL COUNT 4.13 M/uL (4.14-5.76); WHITE BLOOD CELL COUNT,WBC 10.8 K/uL (3.2-11.0)
[2024-04-15 05:15] LABS: CALCIUM 8.4 mg/dL (8.5-10.1); CREATININE 1.6 mg/dL (0.8-1.3); EST CRCL DRUG DOSING (CG) 30.91 mL/min; POTASSIUM,K 4.6 mmol/L (3.6-5.2)
[2024-04-15 05:20] LABS: ANION GAP 12.6 mmol/L (5.0-14.0)
[2024-04-15] MEDS ORDERED: fentaNYL 250 MCG/5 ML SDV ONE (07:01)
[2024-04-15] MEDS ORDERED: Dexamethasone 4 MG/ML SDV ONE (07:03)
[2024-04-15] MEDS ORDERED: Propofol 200 MG/20 ML SDV ONE (07:03)
[2024-04-15] MEDS ORDERED: Neostigmine Methylsulfate 10 MG/10 ML MDV ONE (07:03)
[2024-04-15] MEDS ORDERED: Ondansetron 4 MG/2 ML SDV ONE (07:03)
[2024-04-15] MEDS ORDERED: Succinylcholine 200 MG/10 ML MDV ONE (07:03)
[2024-04-15] MEDS ORDERED: Rocuronium 50 MG/5 ML Vial ONE (07:03)
[2024-04-15] MEDS ORDERED: Glycopyrrolate 0.2 MG/ML 5 ML MDV ONE (07:03)
[2024-04-15] MEDS: Metoprolol Succinate 25 MG Tab.ER PO SCH (07:34)
[2024-04-15] MEDS: Bupivacaine 0.5%/EPINEPHrine 1:200,000 50 ML MDV ONE (08:19)
[2024-04-15] MEDS: Ropivacaine 40 ML, dexAMETHasone 8 MG, EPINEPHrine 0.4 MG, Sodium Chloride 0.9% 37.6 ML NERVRT SCH (08:30)
[2024-04-15 11:05] VITALS: BP 121/52; PULSE 75
[2024-04-15] MEDS: Acetaminophen/HYDROcodone 325-5 MG Tab PO PRN (15:27)
== END 2024-04-15 17:56 | disposition home or self-care (01) ==
LOC: JP.ED 08:58 → JP.ICU 12:44
PROVIDERS: ADMIT Surgery; ATTEND Surgery
DX: C18.1 Malignant neoplasm of appendix (principal); K35.80 Unspecified acute appendicitis; E11.9 Type 2 diabetes mellitus without complications; K21.9 Gastro-esophageal reflux disease without esophagitis; I10 Essential (primary) hypertension; E78.00 Pure hypercholesterolemia, unspecified; I25.10 Atherosclerotic heart disease of native coronary artery without angina pectoris; Z95.1 Presence of aortocoronary bypass graft; Z87.891 Personal history of nicotine dependence
CPT/HCPCS: 36415; 44970; 74177; 80048; 80053; 82947; 83605; 83690; 84484; 85025; 87070; 87075; 87077; 87186; 87205; 96361; 96374; 96375; 99285; A9270; J0171; J0330; J1100; J1170; J1596; J1790; J1815; J2270; J2405; J2543; J2704; J2710; J2795; J3010; J3490; J7030; Q9967

== ENCOUNTER 2024-05-04 15:38 | Emergency (ER) | payer MEDICARE ==
[2024-05-04 21:46] VITALS: BP 143/53; PULSE 57
== END 2024-05-04 18:34 | disposition home or self-care (01) ==
LOC: JP.ED 15:38
DX: G45.9 Transient cerebral ischemic attack, unspecified (principal); I10 Essential (primary) hypertension; E78.00 Pure hypercholesterolemia, unspecified; I25.10 Atherosclerotic heart disease of native coronary artery without angina pectoris; E11.9 Type 2 diabetes mellitus without complications; E66.9 Obesity, unspecified; Z68.27 Body mass index [BMI] 27.0-27.9, adult; Z79.899 Other long term (current) drug therapy; Z79.82 Long term (current) use of aspirin; Z88.2 Allergy status to sulfonamides; Z88.0 Allergy status to penicillin; Z88.8 Allergy status to other drugs, medicaments and biological substances
CPT/HCPCS: 99283